=== PATIENT | male | born 1945 | race Caucasian/White ===

== ENCOUNTER 2017-01-11 15:48 | Inpatient (IN) | payer BC, MEDICARE ==
[~2017-01-11] VITALS: Ht 182.9 cm; Wt 90.3 kg
[2017-01-11 16:04] VITALS: BP 138/74
[2017-01-11] MEDS ORDERED: LORazepam 0.5mg tab ORAL ONE (16:30)
--- NOTE | 2017-01-11 16:30 | Emergency Room Report ---
History of Present Illness General Chief Complaint: Generalized Weakness Source: Patient, EMS Present Illness HPI 71 YOM BIBEMS for multiple complaints: C/o dizziness today, worse with change of position, moving head. Associated with nausea/vomiting, left sided abd pain. Denies chest pain, SOB, headache, change in or blurry vision. Denies urinary complaints. Also fell at home from dizziness but denies trauma or injury. Also concerned for "ruptured hemorrhoid" because "I had blood on the toilet paper." Allergies: Coded Allergies: Ferreira Meat (Verified Allergy, Unknown, 01/11/17) Uncoded Allergies: MINT (Allergy, Unknown, 01/11/17) SODIUM PENATOL (Allergy, Unknown, 01/11/17) Patient History Past Medical History: other - hemorrhoids, sciatica left side Past Surgical History: none Pertinent Family History: none Social History: Denies: alcohol use, drug use, smoking Immunizations: UTD Reviewed Nursing Documentation: PMH: Agreed, PSxH: Agreed Review of Systems All Other Systems: negative except mentioned in HPI Physical Exam Vital Signs Date Time Temp Pulse Resp B/P Pulse Ox O2 Delivery O2 Flow Rate FiO2 01/11/17 15:37 96.3 66 18 115/58 100 Room Air Sp02 EP Interpretation: reviewed, normal General Appearance: normal inspection, well appearing, no apparent distress, alert, GCS 15, non-toxic, other - well appearing elderly male lying in stretcher with eyes closed Head: normocephalic, atraumatic Eyes: bilateral eye EOMI, bilateral eye PERRL ENT: normal ENT inspection, hearing grossly normal, normal voice Neck: normal inspection, full range of motion, supple, no bony tend Respiratory: normal inspection, lungs clear, normal breath sounds, no respiratory distress, no retraction, no wheezing Cardiovascular #1: regular rate, rhythm, no edema Gastrointestinal: normal inspection, normal bowel sounds, soft, no guarding, no hernia, other - Left sided ttp Rectal: deferred Genitourinary: no CVA tenderness Musculoskeletal: normal inspection, back normal, normal range of motion, Lola' s Sign negative Neurologic: normal inspection, alert, oriented x3, responsive, microwave radio technician III-XII nml as tested, motor strength/tone normal, speech normal Psychiatric: normal inspection, judgement/insight normal, mood/affect normal Skin: normal inspection, normal color, no rash Lymphatic: normal inspection Medical Decision Making Medicare Attestation I Ramses Leigh MD hereby attest that the medical record entry for date of service, 10/04/16 accurately reflects signatures/notations that I made in my capacity as MD when I treated/diagnosed the above listed Medicare beneficiary. I attest that this information is true, accurate and complete to the best of my knowledge. I understand that any falsification, omission, or concealment of material fact may subject me to administrative, civil, or criminal liability. This patient warrants hospital admission for extreme of age and has a condition that cannot be treated as outpatient. Diagnostic Impression: Primary Impression: Episode of generalized weakness Additional Impressions: Dizziness Fall Qualified Codes: W19.XXXA - Unspecified fall, initial encounter Diverticulitis Qualified Codes: K57.33 - Diverticulitis of large intestine without perforation or abscess with bleeding ER Course Labs: Mild leuks. No other metabolic abd. Has refused to give urine so far CT head negative for cause of dizziness CTAP with acute diverticulitis, no abscess Levo/Flagyl given in ED Analgesia provided Endorsed to Dr dumont, med/surg admission at 657pm EKG Diagnostic Results Rate: other - atrial paced rhythm Rhythm: NSR ST Segments: no acute changes Rhythm Strip Diag. Results EP Interpretation: yes Rate: 60 Rhythm: NSR, no PVC's, no ectopy Chest X-Ray Diagnostic Results EP Interpretation: Yes Findings: no consolidation, no effusion, no pneumothorax, no acute cardiopulmonary disease Number of Views: 1 Last Vital Signs Date Time Temp Pulse Resp B/P Pulse Ox O2 Delivery O2 Flow Rate FiO2 01/11/17 16:04 97.6 60 18 138/74 100 Room Air Status: improved Disposition: ADMITTED INPATIENT Condition: Serious Referrals: NON PHYSICIAN (PCP) RAMSES LEIGH M.D. Jan 11, 2017 16:30
[2017-01-11 17:08] LABS: MEAN CORPUSCULAR HEMOGLOBIN 31.7 PG (27.0-31.0); MEAN CORPUSCULAR HGB CONC 35.3 G/DL (32.0-36.0); MEAN CORPUSCULAR VOLUME 90 FL (80-99); MEAN PLATELET VOLUME 7.3 FL (6.5-10.1); PLATELET COUNT 199 K/UL (150-450); RED BLOOD COUNT 5.51 M/UL (4.70-6.10); RED CELL DISTRIBUTION WIDTH 11.5 % (11.6-14.8); WHITE BLOOD COUNT 11.1 K/UL (4.8-10.8)
[2017-01-11 17:47] LABS: ALANINE AMINOTRANSFERASE 15 U/L (3-41); ALBUMIN/GLOBULIN RATIO 1.3 (1.0-2.7); ANION GAP 25 (5-15); ASPARTATE AMINO TRANSFERASE 23 U/L (5-40); CALCIUM 9.4 mg/dL (8.6-10.2); CARBON DIOXIDE 19 mEQ/L (20-30); CHLORIDE 90 mEQ/L (98-107); CKMB 3.6 ng/mL (< 6.7); HEMOLYSIS 9; POTASSIUM 3.7 mEQ/L (3.4-4.9); SODIUM 134 mEQ/L (135-145); TOTAL PROTEIN 7.4 g/dL (6.6-8.7); TROPONIN I < 0.30 ng/mL (<=0.30)
[2017-01-11 18:00] VITALS: BP 131/71
[2017-01-11] MEDS ORDERED: metroNIDAZOLE 500mg 100 ML IVPB ONE (19:00)
[2017-01-11 19:34] LABS: APPEARANCE,URINE CLEAR; KETONES,URINE 3+ (NEGATIVE); NITRITE,URINE NEGATIVE (NEGATIVE); PROTEIN,URINE 1+ (NEGATIVE); UROBILINOGEN,URINE NORMAL MG/DL (0.0-1.0)
[2017-01-11 19:35] LABS: LEUKOCYTE ESTERASE ,URINE NEGATIVE (NEGATIVE)
[2017-01-11 19:37] LABS: RBC,URINE 0-2 /HPF (0 - 0)
[2017-01-11 19:38] LABS: BACTERIA,URINE FEW /HPF; WBC,URINE 0-2 /HPF (0 - 0)
[2017-01-11] MEDS ORDERED: GABAPENTIN300 MG ORAL (19:53)
[2017-01-11] MEDS ORDERED: TIZANIDINE HCL2 M2 PO (19:53)
[2017-01-11] MEDS ORDERED: HYDROCODON-ACE1 EA15 ORAL (19:53)
[2017-01-11 20:00] VITALS: BP 124/65
[2017-01-11 20:36] VITALS: BP 148/74
[2017-01-12] VITALS: BP 144/79
[2017-01-12 04:00] VITALS: BP 139/76
[2017-01-12 08:45] VITALS: BP 145/92
--- NOTE | 2017-01-12 08:59 | Diagnostic Imaging Report ---
Clinical Indication: Abdominal pain Technique: No oral contrast utilized, per emergency room physician request IV administration nonionic contrast. Venous phase spiral acquisition obtained through the abdomen and pelvis. Multiplanar reconstructions were generated. Total dose length product 833 mGycm. CTDIvol(s) 16 mGy Comparison: None Findings: The appendix is not visualized. There are no findings to suggest acute appendicitis. There is wall thickening of the descending colon and to lesser extent the sigmoid colon. There is some pericolonic edema surrounding the descending colon. There is distal colonic diverticulosis. No small bowel distention. No free or loculated intraperitoneal air or fluid is evident. The liver, gallbladder, bile ducts, pancreas, spleen, adrenals are unremarkable. There are bilateral renal cysts. No renal or ureteral calculi, hydronephrosis, or hydroureter. The seminal vesicles and bladder unremarkable. The prostate is slightly prominent. The included lung bases demonstrate some dependent atelectasis or scarring. Pacemaker wires are seen in the right heart. There are degenerative changes of the lumbosacral spine. There are degenerative changes of both hips. Impression: Diverticulosis Wall thickening of the descending and, to a lesser extent, the sigmoid colon. Is made represent acute diverticulitis. However, the extent of the colonic abnormality raises possibility that could represent colitis of the descending colon Incidental findings of bilateral renal cysts, dependent pulmonary atelectasis, pacemaker, degenerative changes of the hips, degenerative disc disease This agrees with the preliminary interpretation provided overnight by Dr. Guadarrama The CT scanner at [facility] is accredited by the [employer] and the scans are performed using protocols designed to limit radiation exposure to as low as reasonably achievable to attain images of sufficient resolution adequate for diagnostic evaluation.
--- NOTE | 2017-01-12 09:28 | Diagnostic Imaging Report ---
Indication: Dizziness Technique: spiral acquisitions obtained through the brain. Angled axial and coronal 5 x 5 mm slices were reconstructed. No IV contrast utilized. Radiation dose was minimized using automated exposure control Total dose length product 1428 mGycm. CTDIvol(s) 70 mGy Comparison: none FINDINGS: No acute hemorrhage or edema. No mass effect or midline shift. There is age-related enlargement of the ventricles and extra axial CSF spaces. There is periventricular deep white matter ischemic change. Normal crenshaw-white differentiation. Visualized orbits are unremarkable. Visualized sinuses are unremarkable. Intact calvarium. IMPRESSION: Chronic and age-related changes. Negative for acute intracranial bleed or mass effect This agrees with the preliminary interpretation provided overnight by Dr. Guadarrama The CT scanner at [facility] is accredited by the [employer] and the scans are performed using protocols designed to limit radiation exposure to as low as reasonably achievable to attain images of sufficient resolution adequate for diagnostic evaluation
[2017-01-12] MEDS ORDERED: LORazepam 1mg tab ORAL PRN (10:30)
[2017-01-12] MEDS: Norco 5mg/325mg tab ORAL PRN (10:33)
--- NOTE | 2017-01-12 11:07 | Diagnostic Imaging Report ---
Indication: Cough Technique: One view of the chest Comparison: none Findings: There is a left chest bifocal pacemaker. Lungs and pleural spaces are clear. Aorta is tortuous. Impression: No acute process
[2017-01-12] MEDS: Morphine Sulfate 2mg/ml Inj IVP PRN ×2 (11:42→17:43)
[2017-01-12 12:53] VITALS: BP 140/70
--- NOTE | 2017-01-12 13:49 | Infectious Diseases Prog Note ---
Assessment/Plan Problems: (1) Diverticulitis Assessment & Plan: will check stool culture and C diff toxine, and start levaquin with flagyl empiric therapy for now, recommend GI consult (2) Colitis Assessment & Plan: on levaquin and flagyl, send stool culture and C diff (3) Dizziness Assessment & Plan: rule out cardiac VS neurological etiology, consult neurology and cardiology Subjective Allergies: Coded Allergies: CODEINE (Verified Allergy, Unknown, 01/11/17) Ferreira Meat (Verified Allergy, Unknown, 01/11/17) Uncoded Allergies: MINT (Allergy, Unknown, 01/11/17) SODIUM PENATOL (Allergy, Unknown, 01/11/17) Objective Vital Signs Last 24 Hour Vital Signs Date Time Temp Pulse Resp B/P Pulse Ox O2 Delivery O2 Flow Rate FiO2 01/12/17 12:53 97.0 73 21 140/70 98 Room Air 01/12/17 11:32 97.2 01/12/17 11:32 97.2 01/12/17 08:45 97.2 71 20 145/92 94 01/12/17 06:02 97.9 01/12/17 04:00 97.9 66 18 139/76 95 Room Air 01/12/17 00:00 98.1 67 18 144/79 95 Room Air 01/11/17 20:36 96.4 65 20 148/74 97 Room Air 01/11/17 20:13 63 16 124/65 99 Room Air 01/11/17 20:00 97.9 63 16 124/65 99 Room Air 01/11/17 18:00 61 18 131/71 99 Room Air 01/11/17 16:04 97.6 60 18 138/74 100 Room Air 01/11/17 15:37 96.3 66 18 115/58 100 Room Air Height (Feet): 6 Weight (Pounds): 199 Laboratory Tests Test 01/11/17 16:00 01/11/17 18:30 White Blood Count 11.1 K/UL (4.8-10.8) H Red Blood Count 5.51 M/UL (4.70-6.10) Hemoglobin 17.4 G/DL (14.2-18.0) Hematocrit 49.3 % (42.0-52.0) Mean Corpuscular Volume 90 FL (80-99) Mean Corpuscular Hemoglobin 31.7 PG (27.0-31.0) H Mean Corpuscular Hemoglobin Concent 35.3 G/DL (32.0-36.0) Red Cell Distribution Width 11.5 % (11.6-14.8) L Platelet Count 199 K/UL (150-450) Mean Platelet Volume 7.3 FL (6.5-10.1) Neutrophils (%) (Auto) % (45.0-75.0) Lymphocytes (%) (Auto) % (20.0-45.0) Monocytes (%) (Auto) % (1.0-10.0) Eosinophils (%) (Auto) % (0.0-3.0) Basophils (%) (Auto) % (0.0-2.0) Sodium Level 134 mEQ/L (135-145) L Potassium Level 3.7 mEQ/L (3.4-4.9) Chloride Level 90 mEQ/L (98-107) L Carbon Dioxide Level 19 mEQ/L (20-30) L Anion Gap 25 (5-15) H Blood Urea Nitrogen 29 mg/dL (7-23) H Creatinine 1.0 mg/dL (0.7-1.2) Estimat Glomerular Filtration Rate mL/min (>60) Glucose Level 172 mg/dL (74-106) H Calcium Level 9.4 mg/dL (8.6-10.2) Total Bilirubin 0.6 mg/dL (0.0-1.2) Aspartate Amino Transf (AST/SGOT) 23 U/L (5-40) Alanine Aminotransferase (ALT/SGPT) 15 U/L (3-41) Alkaline Phosphatase 90 U/L (40-129) Total Creatine Kinase 130 U/L (38-174) Creatine Kinase MB 3.6 ng/mL (< 6.7) Creatine Kinase MB Relative Index 2.7 Troponin I < 0.30 ng/mL (<=0.30) Total Protein 7.4 g/dL (6.6-8.7) Albumin 4.2 g/dL (3.5-5.2) Globulin 3.2 g/dL Albumin/Globulin Ratio 1.3 (1.0-2.7) Urine Color Yellow Urine Appearance Clear Urine pH 5.0 (4.5-8.0) Urine Specific [place] 1.005 (1.005-1.035) Urine Protein 1+ (NEGATIVE) H Urine Glucose (UA) Negative (NEGATIVE) Urine Ketones 3+ (NEGATIVE) H Urine Occult Blood 1+ (NEGATIVE) H Urine Nitrite Negative (NEGATIVE) Urine Bilirubin Negative (NEGATIVE) Urine Urobilinogen Normal MG/DL (0.0-1.0) Urine Leukocyte Esterase Negative (NEGATIVE) Urine RBC 0-2 /HPF (0 - 0) H Urine WBC 0-2 /HPF (0 - 0) Urine Squamous Epithelial Cells None /LPF (NONE/OCC) Urine Bacteria Few /HPF (NONE) Current Medications Medications (Trade) Dose Ordered Sig/Sammy Route PRN Reason Start Time Stop Time Status Last Admin Dose Admin Acetaminophen (Tylenol) 650 mg Q4H PRN ORAL Mild Pain/Temp > 100.5 01/11/17 22:00 02/10/17 21:59 01/12/17 05:03 Acetaminophen/ Hydrocodone Bitart ([place] 5/325) 1 tab Q4H PRN ORAL Moderate Pain (Pain Scale 4-6) 01/12/17 10:00 01/19/17 09:59 01/12/17 10:33 Levofloxacin 100 ml @ 100 mls/hr Q24H IVPB 01/12/17 19:00 01/19/17 18:59 Lorazepam (Ativan) 1 mg Q6H PRN ORAL For Anxiety 01/12/17 10:30 01/19/17 10:29 Metronidazole (Flagyl) 100 ml @ 100 mls/hr Q8HR IVPB 01/12/17 14:00 01/19/17 13:59 Morphine Sulfate 2 mg 2 mg Q4H PRN IVP Severe Pain (Pain Scale 7-10) 01/12/17 11:30 01/19/17 11:29 01/12/17 11:42 Ondansetron HCl 4 mg 4 mg Q6H PRN IVP Nausea & Vomiting 01/11/17 21:15 02/10/17 21:14 01/12/17 11:48 Sodium Chloride (0.45% NS 1000ml) 1,000 ml @ 75 mls/hr [id number] IV 01/11/17 22:00 02/10/17 21:59 01/11/17 21:56 Karri Trujillo M.D. Jan 12, 2017 13:49
[2017-01-12] MEDS: metroNIDAZOLE 500mg 100 ML IVPB SCH ×2 (14:50→21:29)
[2017-01-12 15:56] VITALS: BP 142/88
[2017-01-12 20:00] VITALS: BP 140/80
--- NOTE | 2017-01-12 20:33 | General Progress Note ---
Assessment/Plan Assessment/Plan GI CONSULT Dictated Thank you Torsten Subjective Allergies: Coded Allergies: CODEINE (Verified Allergy, Unknown, 01/11/17) Ferreira Meat (Verified Allergy, Unknown, 01/11/17) Uncoded Allergies: MINT (Allergy, Unknown, 01/11/17) SODIUM PENATOL (Allergy, Unknown, 01/11/17) Objective Last 24 Hour Vital Signs Date Time Temp Pulse Resp B/P Pulse Ox O2 Delivery O2 Flow Rate FiO2 01/12/17 15:56 97.5 72 18 142/88 94 Room Air 01/12/17 12:53 97.0 73 21 140/70 98 Room Air 01/12/17 11:32 97.2 01/12/17 11:32 97.2 01/12/17 08:45 97.2 71 20 145/92 94 01/12/17 06:02 97.9 01/12/17 04:00 97.9 66 18 139/76 95 Room Air 01/12/17 00:00 98.1 67 18 144/79 95 Room Air 01/11/17 20:36 96.4 65 20 148/74 97 Room Air Intake and Output 01/11/17 01/12/17 19:00 07:00 Intake Total 625 ml Balance 625 ml Intake IV Total 625 ml # Voids 3 Height (Feet): 6 Weight (Pounds): 199 UTE SHAH Jan 12, 2017 20:33
--- NOTE | 2017-01-12 21:38 | History and Physical Report ---
DATE OF ADMISSION: 01/11/2017 REASON FOR ADMISSION: Weakness and abdominal pain. HISTORY OF PRESENT ILLNESS: The patient is also being treated by acupuncture for sciatica symptoms. The patient was having abdominal left pain radiating to the left knee. The main reason for admission was syncopal episode. found him in the bathroom, was diaphoretic, slumped over, and is admitted for syncope. The patient complained of shortness of breath before this happened, but denied chest pain. Denies palpitations. The patient again is being treated by acupuncture for sciatica while all this was going on. The patient denies orthopnea. Otherwise, denies history of heart failure or heart disease. PAST MEDICAL HISTORY: Significant for anxiety, sciatica/neuropathy, arrhythmia, as well as cataract. PAST SURGICAL HISTORY: Cataract surgery, hemorrhoid surgery, appendectomy, right leg surgery, and pacemaker. MEDICATIONS: Tizanidine, gabapentin, and Vicodin. ALLERGIES: Codeine, sodium, and Pantozol. SOCIAL HISTORY: Denies history of smoking. Denies history of drug and alcohol abuse. FAMILY HISTORY: Noncontributory. REVIEW OF SYSTEMS: HEENT: Denies headache. Respiratory: Does have exertion of shortness of breath and had shortness of breath before passing out. Cardiovascular: Denies chest pain. Denies orthopnea. Gastrointestinal: Reported abdominal pain. No diarrhea. No vomiting for the past couple of days. Extremities: The patient complains of a left hip pain radiating to the left knee. Central Nervous System: He did have syncopal episode. Denies change in vision or speech pattern. He is able to ambulate. PHYSICAL EXAMINATION: VITAL SIGNS: Temperature 96.4 degrees, pulse is 65, and blood pressure 148/74. HEENT: PERRLA. NECK: Supple. No lymphadenopathy. CHEST: Clear to auscultation. GASTROINTESTINAL: Does have left lower quadrant tenderness. No significant rebound. No organomegaly. Abdomen is soft. Positive bowel sounds. EXTREMITIES: No edema. NEUROLOGIC: Reflexes are equal on both sides. Able to move all four extremities. Cranial nerves II through XII are intact. LABORATORY DATA: Laboratory torres, WBC of 11, hemoglobin 24, and platelets of 199,000. Sodium 134, potassium 3.7, BUN 29, creatinine 1, and glucose 172. Normal LFTs. ASSESSMENT: 1. Syncopal episodes. 2. Diaphoresis. 3. Anxiety. 4. Hip pain. PLAN: I have asked Dr. Zamora, Dr. Song, Dr. Trujillo, Dr. Sarmiento, and Dr. Marcial to see the patient for the above-mentioned diagnoses and treatment and to rule out any source of infection. Lucho Goldman M.D. DR: ANEUDY JOB#: [id number] CC:
[2017-01-12] MEDS: Zolpidem 5mg tab ORAL PRN (21:57)
--- NOTE | 2017-01-12 23:08 | Consultation ---
DATE OF CONSULTATION: INFECTIOUS DISEASE CONSULTATION REQUESTING PHYSICIAN: Lucho Goldman M.D. REASON FOR CONSULTATION: Diverticulitis, recommendation for antibiotics therapy. HISTORY OF PRESENT ILLNESS: Mr. Miguel Angel Hernandez is a 71-year-old male with past medical history of hemorrhoids and sciatica, brought into [facility] for feeling dizzy with change of position, mainly when he moves his head, nausea and vomiting with left side abdominal pain. He had diarrhea. Denied any blood in the stool, fell at home from dizziness, but no head injury. The patient had some blood on the toilet paper most likely due to rupture of hemorrhoids, but he was concerned about it. In the emergency room, his temperature was 96.3, saturating 100% on room air. The patient was admitted to the hospital for evaluation of his dizziness and recurrent falls and possible diverticulitis of the descending colon and I was consulted by the primary provider for antibiotic recommendation. PAST MEDICAL HISTORY: Significant for hemorrhoids and sciatica on the left side. PAST SURGICAL HISTORY: Negative. FAMILY HISTORY: Noncontributory. ALLERGIES: He is allergic to goddard meat, mint. MEDICATIONS: The patient received levofloxacin and Flagyl in the emergency room. FOR The list of his medications please refer to MAR. REVIEW OF SYSTEMS: A 12-point system reviewed were all negative apart from the one I mentioned above in my History and Physical. PHYSICAL EXAMINATION: VITAL SIGN: Temperature 97 degrees, pulse 73, respirations 21, blood pressure 140/70, and saturation 98% on room air. GENERAL: An elderly male, lying in bed, alert, not in distress. HEENT: Normocephalic and atraumatic. Pupils are reactive to light. Moist oral mucosa. No exudate. NECK: Supple. No lymphadenopathy. CARDIOVASCULAR: Regular rate and rhythm. No murmur. LUNGS: Clear bilaterally. No breathing difficulty. No wheezing. ABDOMEN: Soft, nontender, and nondistended. Positive bowel sounds. Tenderness on the left side of his abdomen. No ascites. No hepatomegaly. EXTREMITIES: No edema. No cyanosis. SKIN: No rash or hives. LABORATORY AND DIAGNOSTIC DATA: His white count was 11.1, platelet count 199,000. BUN of 29, creatinine of 1. Urinalysis was negative for leukocyte esterase, nitrite, and WBC. Imaging, abdominal CT scan with contrast showed diverticulosis, wall thickening of the descending and the sigmoid colon, who present acute diverticulitis with questionable colitis in the descending colon. Incidental findings of bilateral renal cysts, dependent pulmonary atelectasis, and pacemaker. Head CT scan showed chronic and age-related changes. Negative for acute intracranial bleeding or mass effect. Chest x-ray showed no acute process. ASSESSMENT AND PLAN: 1. Diverticulitis. We will send stool culture and check for Clostridium difficile and start Levaquin with Flagyl empiric treatment. Recommend gastrointestinal consultation. 2. Colitis, on Levaquin and Flagyl already. We will send stool for culture and Clostridium difficile. Monitor symptoms. 3. Dizziness, status post fall. Rule out cardiac versus neurological etiology. Consult Neurology and Cardiology. Continue monitor and storage bin tender. Karri Trujillo M.D. DR: Eriberto JOB#: [id number] CC: ELY
[2017-01-13] VITALS: BP 139/78
[2017-01-13 04:00] VITALS: BP 144/59
[2017-01-13] MEDS: Norco 5mg/325mg tab ORAL PRN (04:46)
[2017-01-13] MEDS: metroNIDAZOLE 500mg 100 ML IVPB SCH ×3 (06:35→20:50)
--- NOTE | 2017-01-13 07:49 | Consultation ---
DATE OF CONSULTATION: 01/12/2017 CHIEF COMPLAINT: Left hip pain. HISTORY OF PRESENT ILLNESS: The patient is a 71-year-old gentleman with a diagnosis of diverticulitis. The patient reports that he is having some left lateral hip pain and he feels like it is deep. He reports no other pain. It does occasionally radiate down his left thigh. There is no previous history of hip or back pathology, but does report some occasional back pain, He had workup of his lumbar spine. PAST MEDICAL HISTORY: Reviewed from the intake chart. PAST SURGICAL HISTORY: Reviewed from the intake chart. MEDICATIONS: Reviewed from the intake chart. PHYSICAL EXAMINATION: Left hip examination shows good range of motion from 0 to 130, about 25 degrees internal rotation and external rotation 25 degrees. There is some pain on the peritrochanteric area. No pain along the piriformis area. Tenderness over lumbar spine muscles. Sensation is grossly intact to light touch. Reflexes are +2. Posterior calf is soft. ASSESSMENT: 1. Diverticulitis, possible referred left hip pain. 2. Peritrochanteric bursitis with possible lumbar radiculopathy. DISCUSSION: At this point, he is having localized pain on the lateral aspect of the left hip. This may be peritrochanteric bursitis or potentially referred from diverticulitis. At this point, what I recommend is medical treatment of the diverticulitis. We are going to continue to monitor to see if this pain improves. If not, then he may benefit from a cortisone injection in the peritrochanteric area, which can be done as an outpatient. Therefore, I would like to see him back in two to three weeks as outpatient. At that point, if he is more medically stable, particularly if his diverticulitis is under control, then a cortisone injection would not be unreasonable. I discussed with him that if he does not have significant relief with the cortisone injection, then workup of the lumbar spine for possible radiculopathy would be reasonable. Greyson Ray M.D. DR: KRYSTIAN JOB#: [id number] CC: Loraine Zavala
[2017-01-13 08:00] VITALS: BP 154/97
--- NOTE | 2017-01-13 08:09 | Consultation ---
DATE OF CONSULTATION: 01/12/2017 GASTROENTEROLOGY CONSULTATION CHIEF COMPLAINT: I was asked to see this patient by Dr. Lucho Goldman today for evaluation of abdominal issues. HISTORY OF PRESENT ILLNESS: The patient is a 71-year-old white man who has recently noted left-sided flank pain going down to his hips. He was seen by his primary care physician and a presumptive diagnosis of sciatica was made. He was given steroid, Medrol Dosepak as well as some antispasmodics and pain medications. However, the pain has persisted and he developed constipation. He was given a stool softener and subsequently he had diarrhea with subsequent gas. He noted hematochezia for a few days, upon which he came to the hospital for admission. The patient has not had any more bleeding and it has stopped for the past two or three days. He has been kept NPO. He has no nausea or vomiting. He had a colonoscopy perhaps five or six years ago. He had a CT scan at this hospital, which shows diverticulosis of the thickened left colon. Differential diagnosis from a radiographic standpoint is diverticulitis versus colitis. He has been started on antibiotics for intra-abdominal infection. He had mild elevation in his white count. PAST MEDICAL HISTORY: Gastroesophageal reflux disease and status post pacemaker placement. Son has ulcerative colitis. PAST SURGICAL HISTORY: Status post leg surgery, status post appendix surgery, and cataract surgery. SOCIAL HISTORY: The patient is . He has a son, who is at bedside, who has ulcerative colitis. FAMILY HISTORY: Noncontributory. REVIEW OF SYSTEMS: Otherwise negative. PHYSICAL EXAMINATION: GENERAL: The patient is a pleasant white man, seen in his room. HEENT: Normocephalic and atraumatic. Sclerae anicteric. Oropharynx clear. NECK: Supple. CHEST: Clear to auscultation. CARDIOVASCULAR: Revealed a regular rate. ABDOMEN: Soft with good bowel sounds. There is left lower quadrant tenderness to palpation. EXTREMITIES: Revealed no edema. NEUROLOGIC: Nonfocal. LABORATORY DATA: Noted. ASSESSMENT: This patient has developed left lower quadrant abdominal pain with CT scan showing either diverticulitis or colitis. He developed some rectal bleeding, which has resolved. This is typically from colitis, but from diverticula. The diagnosis of diverticulitis precludes doing any colonoscopic examination since it carries a risk of perforation. On the other hand, colitis and diverticular bleeding managed with colonoscopic intervention. Given the patient has stopped bleeding and he is feeling better, cautioned not to plan colonoscopy at this time. The patient should be given antibiotics for presumptive diagnosis of diverticulitis. perhaps one month to see whether he can undergo colonoscopic evaluation to rule out any colitis. Should his bleeding persist, he will return, then the decision can be changed. RECOMMENDATIONS: 1. Advance diet to clear liquids. 2. Continue antibiotics. 3. Check stool for C. difficile. 4. Colonoscopy as an outpatient. Thank you for asking me to participate in the care of this patient. Ángela Sarmiento M.D. DR: SISI JOB#: [id number] CC:
--- NOTE | 2017-01-13 09:09 | Consultation ---
History of Present Illness General Date patient seen: Jan 13, 2017 Chief Complaint: Generalized Weakness Present Illness Allergies: Coded Allergies: CODEINE (Verified Allergy, Unknown, 01/11/17) Ferreira Meat (Verified Allergy, Unknown, 01/11/17) Uncoded Allergies: MINT (Allergy, Unknown, 01/11/17) SODIUM PENATOL (Allergy, Unknown, 01/11/17) Medication History Scheduled PRN Hydrocodone/Acetaminophen 5-325* (Hydrocodone/Acetaminophen 5-325*), 1 TAB ORAL Q6H PRN for For Pain, (Reported) Miscellaneous Medications Gabapentin* (Gabapentin*), 300 MG ORAL, (Reported) Tizanidine Hcl (Tizanidine Hcl), 2 MG PO, (Reported) Patient History Healthcare decision maker pt alert and oriented Resuscitation status Full Code Advanced Directive on File No Physical Exam Last 24 Hour Vital Signs Date Time Temp Pulse Resp B/P Pulse Ox O2 Delivery O2 Flow Rate FiO2 01/13/17 08:00 98.1 81 21 154/97 95 Room Air 01/13/17 05:45 95.9 01/13/17 04:00 95.9 74 21 144/59 94 Room Air 01/13/17 00:00 97.6 72 18 139/78 95 Room Air 01/12/17 20:00 97.2 74 19 140/80 94 Room Air 01/12/17 15:56 97.5 72 18 142/88 94 Room Air 01/12/17 12:53 97.0 73 21 140/70 98 Room Air 01/12/17 11:32 97.2 Intake and Output 01/12/17 01/13/17 19:00 07:00 Intake Total 600 ml 1415 ml Balance 600 ml 1415 ml Intake Oral 540 ml IV Total 600 ml 875 ml # Voids 2 5 Height (Feet): 6 Weight (Pounds): 199 Medications Current Medications Medications (Trade) Dose Ordered Sig/Sammy Route PRN Reason Start Time Stop Time Status Last Admin Dose Admin Acetaminophen (Tylenol) 650 mg Q4H PRN ORAL Mild Pain/Temp > 100.5 01/11/17 22:00 02/10/17 21:59 01/12/17 05:03 Acetaminophen/ Hydrocodone Bitart ([place] 5/325) 1 tab Q4H PRN ORAL Moderate Pain (Pain Scale 4-6) 01/12/17 10:00 01/19/17 09:59 01/13/17 04:46 Levofloxacin 100 ml @ 100 mls/hr Q24H IVPB 01/12/17 19:00 01/19/17 18:59 01/12/17 19:04 Lorazepam (Ativan) 1 mg Q6H PRN ORAL For Anxiety 01/12/17 10:30 01/19/17 10:29 Metronidazole (Flagyl) 100 ml @ 100 mls/hr Q8HR IVPB 01/12/17 14:00 01/19/17 13:59 01/13/17 06:35 Morphine Sulfate 2 mg 2 mg Q4H PRN IVP Severe Pain (Pain Scale 7-10) 01/12/17 11:30 01/19/17 11:29 01/12/17 17:43 Ondansetron HCl 4 mg 4 mg Q6H PRN IVP Nausea & Vomiting 01/11/17 21:15 02/10/17 21:14 01/12/17 17:55 Sodium Chloride (0.45% NS 1000ml) 1,000 ml @ 75 mls/hr [id number] IV 01/11/17 22:00 02/10/17 21:59 01/12/17 17:44 Zolpidem Tartrate (Ambien) 5 mg HSPRN PRN ORAL Insomnia 01/12/17 20:45 02/11/17 20:44 01/12/17 21:57 Assessment/Plan Assessment/Plan (1) Lumbar Radiculopathy (2) Lumbar DDD (3) Abdominal pain (4) Diverticulitis Seen Dictated ROSALIO NIXON Jan 13, 2017 09:09
[2017-01-13 09:23] LABS: BASOPHILS % (AUTO) 0.8 % (0.0-2.0); EOSINOPHILS % (AUTO) 0.3 % (0.0-3.0); LYMPHOCYTES % (AUTO) 14.5 % (20.0-45.0); MEAN CORPUSCULAR HEMOGLOBIN 30.4 PG (27.0-31.0); MEAN CORPUSCULAR HGB CONC 33.1 G/DL (32.0-36.0); MEAN CORPUSCULAR VOLUME 92 FL (80-99); MEAN PLATELET VOLUME 8.4 FL (6.5-10.1); MONOCYTES % (AUTO) 8.1 % (1.0-10.0); NEUTROPHILS % (AUTO) 76.4 % (45.0-75.0); PLATELET COUNT 176 K/UL (150-450); RED BLOOD COUNT 5.13 M/UL (4.70-6.10); WHITE BLOOD COUNT 8.2 K/UL (4.8-10.8)
[2017-01-13 09:33] LABS: ALANINE AMINOTRANSFERASE 11 U/L (3-41); ALBUMIN/GLOBULIN RATIO 1.3 (1.0-2.7); ANION GAP 19 (5-15); ASPARTATE AMINO TRANSFERASE 18 U/L (5-40); CALCIUM 8.7 mg/dL (8.6-10.2); CARBON DIOXIDE 22 mEQ/L (20-30); CHLORIDE 93 mEQ/L (98-107); HEMOLYSIS 16; POTASSIUM 3.9 mEQ/L (3.4-4.9); SODIUM 134 mEQ/L (135-145); TOTAL PROTEIN 6.2 g/dL (6.6-8.7)
[2017-01-13] MEDS: Tums 500mg ORAL PRN ×2 (11:58→17:26)
[2017-01-13 12:00] VITALS: BP 131/80
--- NOTE | 2017-01-13 12:28 | General Progress Note ---
Assessment/Plan Problem List: (1) Dizziness ICD Codes: R42 - Dizziness and giddiness SNOMED: 365091633, 546019589 (2) Fall ICD Codes: W19.XXXA - Unspecified fall, initial encounter SNOMED: 1041323, 294054257 Qualifiers: Qualified Codes: W19.XXXA - Unspecified fall, initial encounter (3) Episode of generalized weakness ICD Codes: R53.1 - Weakness SNOMED: 43179358 (4) Colitis ICD Codes: K52.9 - Noninfective gastroenteritis and colitis, unspecified SNOMED: 832464803 (5) Diverticulitis ICD Codes: K57.92 - Diverticulitis of intestine, part unspecified, without perforation or abscess without bleeding SNOMED: 876718707 Qualifiers: Qualified Codes: K57.33 - Diverticulitis of large intestine without perforation or abscess with bleeding Status: progressing Assessment/Plan abdominal pain weak diverticulitis colitis abx per id r/o c diff Subjective ROS Limited/Unobtainable: Yes Allergies: Coded Allergies: CODEINE (Verified Allergy, Unknown, 01/11/17) Ferreira Meat (Verified Allergy, Unknown, 01/11/17) Uncoded Allergies: MINT (Allergy, Unknown, 01/11/17) SODIUM PENATOL (Allergy, Unknown, 01/11/17) Objective Last 24 Hour Vital Signs Date Time Temp Pulse Resp B/P Pulse Ox O2 Delivery O2 Flow Rate FiO2 01/13/17 08:00 98.1 81 21 154/97 95 Nasal Cannula 2.0 01/13/17 05:45 95.9 01/13/17 04:00 95.9 74 21 144/59 94 Room Air 01/13/17 00:00 97.6 72 18 139/78 95 Room Air 01/12/17 20:00 97.2 74 19 140/80 94 Room Air 01/12/17 15:56 97.5 72 18 142/88 94 Room Air 01/12/17 12:53 97.0 73 21 140/70 98 Room Air Intake and Output 01/12/17 01/13/17 19:00 07:00 Intake Total 600 ml 1415 ml Balance 600 ml 1415 ml Intake Oral 540 ml IV Total 600 ml 875 ml # Voids 2 5 Laboratory Tests 01/13/17 05:30: White Blood Count 8.2, Red Blood Count 5.13, Hemoglobin 15.6, Hematocrit 47.2, Mean Corpuscular Volume 92, Mean Corpuscular Hemoglobin 30.4, Mean Corpuscular Hemoglobin Concent 33.1, Red Cell Distribution Width 12.0, Platelet Count 176, Mean Platelet Volume 8.4, Neutrophils (%) (Auto) 76.4H, Lymphocytes (%) (Auto) 14.5L, Monocytes (%) (Auto) 8.1, Eosinophils (%) (Auto) 0.3, Basophils (%) (Auto ) 0.8, Sodium Level 134L, Potassium Level 3.9, Chloride Level 93L, Carbon Dioxide Level 22, Anion Gap 19H, Blood Urea Nitrogen 24H, Creatinine 1.0, Estimat Glomerular Filtration Rate , Glucose Level 72L, Calcium Level 8.7, Total Bilirubin 0.4, Aspartate Amino Transf (AST/SGOT) 18, Alanine Aminotransferase (ALT/SGPT) 11, Alkaline Phosphatase 71, Total Protein 6.2L, Albumin 3.6, Globulin 2.6, Albumin/Globulin Ratio 1.3 Height (Feet): 6 Weight (Pounds): 199 General Appearance: mild distress Neck: supple Cardiovascular: normal rate Respiratory/Chest: lungs clear Lucho Goldman MD Jan 13, 2017 12:28
[2017-01-13] MEDS: Morphine Sulfate 2mg/ml Inj IVP PRN ×2 (12:41→20:38)
--- NOTE | 2017-01-13 14:03 | Cardiology Report ---
APPROVED REPORT EKG Measurement Heart [id number] [id number] Atrial pacing Voltage criteria for left ventricular hypertrophy Abnormal ECG
--- NOTE | 2017-01-13 14:27 | Diagnostic Imaging Report ---
Indications: Back pain Technique: Spiral acquisitions obtained through the lumbar spine. Multiplanar reconstructions were generated. No IV contrast utilized. Total dose length product 458 mGycm. CTDIvol(s) 15 mGy Comparison: None Findings: There is very slight anterior offset of L4 on L5 very slight posterior offset of L5 on S1, presumably related to degenerative change. Bony alignment is otherwise normal. Vertebral body heights are preserved. No acute fractures are evident. At T12-L1, L1-L2, no significant disc bulge or protrusion, spinal stenosis, disc or facet degeneration, or neural foraminal stenosis demonstrated. At L2-3, there is herniation of the disc posterior to the posterior longitudinal ligament, with central and to the left of midline, which results in narrowing of the spinal canal and obliteration of the left lateral recess. The herniated disc extends posterior to the L3 vertebral body almost to the level of the L3 inferior endplate. The protruded disc measures approximately 16 mm transverse, 6 mm AP, an 18 mm craniocaudad. The disc may actually impinge somewhat on the left L3-4 neural foramen as well. Spinal stenosis at this level is also exacerbated by ligamentum flavum hypertrophy. There is mild compromise of the bilateral neural foramina. The disc space is preserved. There is minimal bilateral facet degeneration, worse on the right than on the left. At L3-4, there is moderate spinal stenosis, due to a combination of mild circumferential annular bulge, severe facet and ligamentum flavum hypertrophy, and short pedicles. The neural foramina are largely preserved, except that is mentioned earlier there may be slight compromise of the left neural foramen by the intervening L2-3 disc. There is severe bilateral facet degeneration. The disc space is preserved At L4-5, there is circumferential annular bulge as well as central broad-based posterior disc protrusion and osteophyte complex. This, in combination with facet hypertrophy, short pedicles, and ligamentum flavum hypertrophy probably results in at least moderate narrowing of the spinal canal. There is considerable narrowing in the transverse dimension as well. The neural foramina are only minimally compromised by the protruding disc. The disc space is preserved. There is severe bilateral facet degeneration. At L5-S1, there is moderate to severe degenerative disc narrowing. There is mild posterior osteophyte complex, but this does not appear to significantly narrow the spinal canal. The neural foramina are preserved. The included extraspinal soft tissues are unremarkable. Impression: Inferior central and paracentral disc herniation at L2-3, as described, with obliteration of the lateral recess, spinal stenosis, and possibly even encroachment into the L3-4 neural foramen. Multi-level degenerative changes and spinal stenosis at other levels, as detailed above No acute bony trauma The CT scanner at [facility] is accredited by the [employer] and the scans are performed using protocols designed to limit radiation exposure to as low as reasonably achievable to attain images of sufficient resolution adequate for diagnostic evaluation.
[2017-01-13] MEDS ORDERED: Tubing IV Secondary IV ONE (14:57)
[2017-01-13] MEDS ORDERED: 1/2 NS 1000ml IV ONE (14:57)
[2017-01-13 16:08] VITALS: BP 145/83
--- NOTE | 2017-01-13 16:41 | Infectious Diseases Prog Note ---
Assessment/Plan Problems: (1) Diverticulitis Assessment & Plan: continue levaquin and flagyl , await stool culture and C diff toxine, follow up with GI (2) Colitis Assessment & Plan: on levaquin and flagyl, send stool culture and C diff (3) Dizziness Assessment & Plan: rule out cardiac VS neurological etiology, consult neurology and cardiology Subjective Constitutional: Denies: anorexia, chills, drenching sweats, fatigue, fever, no symptoms, other HEENT: Denies: congestion, coryza, dysphagia, hearing change, no symptoms, other, visual change Respiratory: Denies: dry cough, no symptoms, other, productive cough, shortness of breath Breasts: Denies: discharge, no symptoms, other, swelling, tenderness Cardiovascular: Denies: chest pain, dyspnea on exertion, no symptoms, other, palpitations Gastrointestinal/Abdominal: Denies: bloating, blood in stool, constipation, diarrhea, nausea, no symptoms, other, vomiting Genitourinary: Denies: dysuria, frequency, hematuria, no symptoms, nocturia, other Neurologic: Denies: confusion, headache, no symptoms, numbness, other, weakness Psychiatric: Denies: anxiety, depression, no symptoms, other Skin: Denies: no symptoms, other, rash, ulcer Endocrine: Denies: feels cold, feels warm, no symptoms, other Allergies: Coded Allergies: CODEINE (Verified Allergy, Unknown, 01/11/17) Ferreira Meat (Verified Allergy, Unknown, 01/11/17) Uncoded Allergies: MINT (Allergy, Unknown, 01/11/17) SODIUM PENATOL (Allergy, Unknown, 01/11/17) Objective Vital Signs Last 24 Hour Vital Signs Date Time Temp Pulse Resp B/P Pulse Ox O2 Delivery O2 Flow Rate FiO2 01/13/17 16:08 97.5 61 18 145/83 97 Room Air 01/13/17 13:11 98.1 01/13/17 12:00 97.7 71 20 131/80 94 Room Air 01/13/17 08:00 98.1 81 21 154/97 95 Nasal Cannula 2.0 01/13/17 05:45 95.9 01/13/17 04:00 95.9 74 21 144/59 94 Room Air 01/13/17 00:00 97.6 72 18 139/78 95 Room Air 01/12/17 20:00 97.2 74 19 140/80 94 Room Air Height (Feet): 6 Weight (Pounds): 199 General Appearance: WD/WN, no acute distress HEENT: normocephalic, atraumatic, mucous membranes moist Respiratory/Chest: chest wall non-tender, lungs clear, normal breath sounds, no respiratory distress, no accessory muscle use Cardiovascular: normal peripheral pulses, normal rate, regular rhythm, regularly irregular Abdomen: normal bowel sounds, soft, non tender, no organomegaly, non distended , no mass Extremities: no cyanosis, no clubbing Skin: no rash, no lesions Laboratory Tests Test 01/13/17 05:30 White Blood Count 8.2 K/UL (4.8-10.8) Red Blood Count 5.13 M/UL (4.70-6.10) Hemoglobin 15.6 G/DL (14.2-18.0) Hematocrit 47.2 % (42.0-52.0) Mean Corpuscular Volume 92 FL (80-99) Mean Corpuscular Hemoglobin 30.4 PG (27.0-31.0) Mean Corpuscular Hemoglobin Concent 33.1 G/DL (32.0-36.0) Red Cell Distribution Width 12.0 % (11.6-14.8) Platelet Count 176 K/UL (150-450) Mean Platelet Volume 8.4 FL (6.5-10.1) Neutrophils (%) (Auto) 76.4 % (45.0-75.0) H Lymphocytes (%) (Auto) 14.5 % (20.0-45.0) L Monocytes (%) (Auto) 8.1 % (1.0-10.0) Eosinophils (%) (Auto) 0.3 % (0.0-3.0) Basophils (%) (Auto) 0.8 % (0.0-2.0) Sodium Level 134 mEQ/L (135-145) L Potassium Level 3.9 mEQ/L (3.4-4.9) Chloride Level 93 mEQ/L (98-107) L Carbon Dioxide Level 22 mEQ/L (20-30) Anion Gap 19 (5-15) H Blood Urea Nitrogen 24 mg/dL (7-23) H Creatinine 1.0 mg/dL (0.7-1.2) Estimat Glomerular Filtration Rate mL/min (>60) Glucose Level 72 mg/dL (74-106) L Calcium Level 8.7 mg/dL (8.6-10.2) Total Bilirubin 0.4 mg/dL (0.0-1.2) Aspartate Amino Transf (AST/SGOT) 18 U/L (5-40) Alanine Aminotransferase (ALT/SGPT) 11 U/L (3-41) Alkaline Phosphatase 71 U/L (40-129) Total Protein 6.2 g/dL (6.6-8.7) L Albumin 3.6 g/dL (3.5-5.2) Globulin 2.6 g/dL Albumin/Globulin Ratio 1.3 (1.0-2.7) Current Medications Medications (Trade) Dose Ordered Sig/Sammy Route PRN Reason Start Time Stop Time Status Last Admin Dose Admin Acetaminophen (Tylenol) 650 mg Q4H PRN ORAL Mild Pain/Temp > 100.5 01/11/17 22:00 02/10/17 21:59 01/12/17 05:03 Acetaminophen/ Hydrocodone Bitart ([place] 5/325) 1 tab Q4H PRN ORAL Moderate Pain (Pain Scale 4-6) 01/12/17 10:00 01/19/17 09:59 01/13/17 04:46 Calcium Carbonate (Tums) 1,000 mg Q4H PRN ORAL INDIGESTION 01/13/17 11:15 02/12/17 11:14 01/13/17 11:58 Levofloxacin 100 ml @ 100 mls/hr Q24H IVPB 01/12/17 19:00 01/19/17 18:59 01/12/17 19:04 Lorazepam (Ativan) 1 mg Q6H PRN ORAL For Anxiety 01/12/17 10:30 01/19/17 10:29 Metronidazole (Flagyl) 100 ml @ 100 mls/hr Q8HR IVPB 01/12/17 14:00 01/19/17 13:59 01/13/17 12:41 Morphine Sulfate 2 mg 2 mg Q4H PRN IVP Severe Pain (Pain Scale 7-10) 01/12/17 11:30 01/19/17 11:29 01/13/17 12:41 Ondansetron HCl 4 mg 4 mg Q6H PRN IVP Nausea & Vomiting 01/11/17 21:15 02/10/17 21:14 01/12/17 17:55 Sodium Chloride (0.45% NS 1000ml) 1,000 ml @ 75 mls/hr [id number] IV 01/11/17 22:00 02/10/17 21:59 01/13/17 12:40 Zolpidem Tartrate (Ambien) 5 mg HSPRN PRN ORAL Insomnia 01/12/17 20:45 02/11/17 20:44 01/12/17 21:57 Karri Trujillo M.D. Jan 13, 2017 16:41
--- NOTE | 2017-01-13 17:08 | Consultation ---
DATE OF CONSULTATION: 01/13/2017 PAIN MANAGEMENT CONSULTATION CONSULTING PHYSICIAN: Santi Zamora M.D. ATTENDING PHYSICIAN: ELIF Landry REFERRING PHYSICIAN: Lucho Goldman M.D. REASON FOR CONSULTATION: Abdominal pain and low back pain. HISTORY OF PRESENT ILLNESS: This is a 71-year-old male, who is being seen on the medical/surgical floor of [facility] for initial comprehensive pain management consultation. The patient reports that he has been having abdominal pain and was admitted under the care of Dr. Goldman for diverticulitis. The patient also having pain in his back which he states has been for many years and has worsened over the past three weeks. It is an off and on pain. It is chronic, rating 10/10. It is described as sharp shooting pain at the left lower extremity increased with movement and reduced with medication. At this time, the patient is in bed. We were consulted so that the patient would have adequate pain control while here in the hospital. PAST MEDICAL HISTORY: Anxiety, sciatica, arrhythmia, cataract. PAST SURGICAL HISTORY: Cataract surgery, hemorrhoid surgery, appendectomy, right leg surgery, pacemaker. MEDICATIONS: Tizanidine, gabapentin. ALLERGIES: Codeine, and pantoprazole. SOCIAL HISTORY: Denies history of smoking. Denies any IV drug abuse or alcohol abuse. REVIEW OF SYSTEMS: Denies rash, fever, chills, sweating, dizziness, drowsiness, blurred vision, sore throat, or change in hearing or weight. No nausea, vomiting, or blood in the stool, or urine. He is complaining of back pain and abdominal pain. PHYSICAL EXAMINATION: GENERAL: Alert, awake, oriented x3. VITAL SIGNS: Blood pressure 154/92, heart rate 81, oxygen saturation 98%, respirations 21, and temperature is 98.1 degrees Fahrenheit. HEENT: PERRLA. NECK: Range of motion is full in all directions. No tenderness. No adenopathy. LUNGS: Clear. HEART: Regular. ABDOMEN: Tenderness to palpation. BACK: Range of motion is decreased in flexion and extension with tenderness to paraspinal muscles. No tenderness to trapezius or rhomboid muscles. EXTREMITIES: Upper extremity range of motion is full in all directions. Motor is intact. No cyanosis. No clubbing. No edema. Sensory is intact. Reflexes are not obtainable. Lower extremity range of motion is decreased due to the patient's clinical condition. No cyanosis. No clubbing. No edema. Sensory intact. Reflexes are not obtainable. No adenopathy. ASSESSMENT AND PLAN: This is a 70-year-old male with lumbar radiculopathy, lumbar degenerative disk disease, abdominal pain, and diverticulitis. The patient will be ordered for a CT scan of lumbar spine without contrast to rule out pathology. The patient will be continued on morphine 2 mg IV every four hours as needed for severe pain and [place] 5/325 one tablet every four hours as needed for mild pain. The patient was discussed with Dr. Zamora and Dr. Zamora concurred. We will follow up with the patient. Thank you very much for the courtesy of this consultation. Santi Zamora M.D. ELIF Landry DR: Yoli JOB#: [id number] CC: ELY
[2017-01-13 20:18] VITALS: BP 143/80
[2017-01-13] MEDS ORDERED: Mylanta II UD 30ml ORAL PRN (21:30)
[2017-01-13] MEDS: Zolpidem 5mg tab ORAL PRN (21:31)
[2017-01-13] MEDS: Pantoprazole Inj IVP SCH (22:21)
--- NOTE | 2017-01-13 22:51 | Geriatric Progress Note ---
Assessment/Plan Assessment/Plan Anxiety d/o Discussed with: patient, family Subjective Constitutional: Reports: malaise, weakness Psychiatric: Reports: other - Anxiety Geriatric Geriatric Last 24 Hour Vital Signs Date Time Temp Pulse Resp B/P Pulse Ox O2 Delivery O2 Flow Rate FiO2 01/13/17 21:08 96.6 01/13/17 20:18 96.6 60 19 143/80 96 Room Air 01/13/17 16:08 97.5 61 18 145/83 97 Room Air 01/13/17 12:00 97.7 71 20 131/80 94 Room Air 01/13/17 08:00 98.1 81 21 154/97 95 Nasal Cannula 2.0 01/13/17 05:45 95.9 01/13/17 04:00 95.9 74 21 144/59 94 Room Air 01/13/17 00:00 97.6 72 18 139/78 95 Room Air Intake and Output 01/12/17 01/13/17 19:00 07:00 Intake Total 600 ml 1415 ml Balance 600 ml 1415 ml Intake Oral 540 ml IV Total 600 ml 875 ml # Voids 2 5 Laboratory Tests Test 01/13/17 05:30 White Blood Count 8.2 K/UL (4.8-10.8) Red Blood Count 5.13 M/UL (4.70-6.10) Hemoglobin 15.6 G/DL (14.2-18.0) Hematocrit 47.2 % (42.0-52.0) Mean Corpuscular Volume 92 FL (80-99) Mean Corpuscular Hemoglobin 30.4 PG (27.0-31.0) Mean Corpuscular Hemoglobin Concent 33.1 G/DL (32.0-36.0) Red Cell Distribution Width 12.0 % (11.6-14.8) Platelet Count 176 K/UL (150-450) Mean Platelet Volume 8.4 FL (6.5-10.1) Neutrophils (%) (Auto) 76.4 % (45.0-75.0) H Lymphocytes (%) (Auto) 14.5 % (20.0-45.0) L Monocytes (%) (Auto) 8.1 % (1.0-10.0) Eosinophils (%) (Auto) 0.3 % (0.0-3.0) Basophils (%) (Auto) 0.8 % (0.0-2.0) Sodium Level 134 mEQ/L (135-145) L Potassium Level 3.9 mEQ/L (3.4-4.9) Chloride Level 93 mEQ/L (98-107) L Carbon Dioxide Level 22 mEQ/L (20-30) Anion Gap 19 (5-15) H Blood Urea Nitrogen 24 mg/dL (7-23) H Creatinine 1.0 mg/dL (0.7-1.2) Estimat Glomerular Filtration Rate mL/min (>60) Glucose Level 72 mg/dL (74-106) L Calcium Level 8.7 mg/dL (8.6-10.2) Total Bilirubin 0.4 mg/dL (0.0-1.2) Aspartate Amino Transf (AST/SGOT) 18 U/L (5-40) Alanine Aminotransferase (ALT/SGPT) 11 U/L (3-41) Alkaline Phosphatase 71 U/L (40-129) Total Protein 6.2 g/dL (6.6-8.7) L Albumin 3.6 g/dL (3.5-5.2) Globulin 2.6 g/dL Albumin/Globulin Ratio 1.3 (1.0-2.7) Current Medications Medications (Trade) Dose Ordered Sig/Sammy Route PRN Reason Start Time Stop Time Status Last Admin Dose Admin Acetaminophen (Tylenol) 650 mg Q4H PRN ORAL Mild Pain/Temp > 100.5 01/11/17 22:00 02/10/17 21:59 01/12/17 05:03 Acetaminophen/ Hydrocodone Bitart ([place] 5/325) 1 tab Q4H PRN ORAL Moderate Pain (Pain Scale 4-6) 01/12/17 10:00 01/19/17 09:59 01/13/17 04:46 Al Hydroxide/Mg Hydroxide (Mylanta II) 30 ml Q6H PRN ORAL Abdominal cramps 01/13/17 21:30 02/12/17 21:29 Calcium Carbonate (Tums) 1,000 mg Q4H PRN ORAL INDIGESTION 01/13/17 11:15 02/12/17 11:14 01/13/17 17:26 Levofloxacin 100 ml @ 100 mls/hr Q24H IVPB 01/12/17 19:00 01/19/17 18:59 01/13/17 19:19 Lorazepam (Ativan) 1 mg Q6H PRN ORAL For Anxiety 01/12/17 10:30 01/19/17 10:29 Metronidazole (Flagyl) 100 ml @ 100 mls/hr Q8HR IVPB 01/12/17 14:00 01/19/17 13:59 01/13/17 20:50 Morphine Sulfate 2 mg 2 mg Q4H PRN IVP Severe Pain (Pain Scale 7-10) 01/12/17 11:30 01/19/17 11:29 01/13/17 20:38 Ondansetron HCl 4 mg 4 mg Q6H PRN IVP Nausea & Vomiting 01/11/17 21:15 02/10/17 21:14 01/13/17 20:49 Pantoprazole (Protonix) 40 mg DAILY IVP 01/13/17 22:00 02/12/17 21:59 01/13/17 22:21 Sodium Chloride (0.45% NS 1000ml) 1,000 ml @ 75 mls/hr [id number] IV 01/11/17 22:00 02/10/17 21:59 01/13/17 12:40 Zolpidem Tartrate (Ambien) 5 mg HSPRN PRN ORAL Insomnia 01/12/17 20:45 02/11/17 20:44 01/13/17 21:31 Height (Feet): 6 Weight (Pounds): 199 General Appearance: well appearing, well dressed, well groomed, well nourished , non-toxic, good eye contact, mild distress Psychiatric: judgement/insight normal, memory normal, mood/affect normal, no suicidal/homicidal ideation, no delusions, depressed affect, anxious Psychiatric Behavior: cooperative Language/Speech: intact Orientation: person, place, time, situation Affect: appropriate Conor Cortes M.D. Jan 13, 2017 22:51
--- NOTE | 2017-01-13 23:23 | General Progress Note ---
Assessment/Plan Assessment/Plan Assessment - (L) LQ abd pain - diverticulosis - resolved GIB - Likely diverticulitis Recommendations - abx - advance po - outpatient colonoscopy in 4-8 weeks Subjective Allergies: Coded Allergies: CODEINE (Verified Allergy, Unknown, 01/11/17) Ferreira Meat (Verified Allergy, Unknown, 01/11/17) Uncoded Allergies: MINT (Allergy, Unknown, 01/11/17) SODIUM PENATOL (Allergy, Unknown, 01/11/17) Subjective slept better less pain some indigestion Objective Last 24 Hour Vital Signs Date Time Temp Pulse Resp B/P Pulse Ox O2 Delivery O2 Flow Rate FiO2 01/13/17 21:08 96.6 01/13/17 20:18 96.6 60 19 143/80 96 Room Air 01/13/17 16:08 97.5 61 18 145/83 97 Room Air 01/13/17 12:00 97.7 71 20 131/80 94 Room Air 01/13/17 08:00 98.1 81 21 154/97 95 Nasal Cannula 2.0 01/13/17 05:45 95.9 01/13/17 04:00 95.9 74 21 144/59 94 Room Air 01/13/17 00:00 97.6 72 18 139/78 95 Room Air Intake and Output 01/12/17 01/13/17 19:00 07:00 Intake Total 600 ml 1415 ml Balance 600 ml 1415 ml Intake Oral 540 ml IV Total 600 ml 875 ml # Voids 2 5 Laboratory Tests 01/13/17 05:30: White Blood Count 8.2, Red Blood Count 5.13, Hemoglobin 15.6, Hematocrit 47.2, Mean Corpuscular Volume 92, Mean Corpuscular Hemoglobin 30.4, Mean Corpuscular Hemoglobin Concent 33.1, Red Cell Distribution Width 12.0, Platelet Count 176, Mean Platelet Volume 8.4, Neutrophils (%) (Auto) 76.4H, Lymphocytes (%) (Auto) 14.5L, Monocytes (%) (Auto) 8.1, Eosinophils (%) (Auto) 0.3, Basophils (%) (Auto ) 0.8, Sodium Level 134L, Potassium Level 3.9, Chloride Level 93L, Carbon Dioxide Level 22, Anion Gap 19H, Blood Urea Nitrogen 24H, Creatinine 1.0, Estimat Glomerular Filtration Rate , Glucose Level 72L, Calcium Level 8.7, Total Bilirubin 0.4, Aspartate Amino Transf (AST/SGOT) 18, Alanine Aminotransferase (ALT/SGPT) 11, Alkaline Phosphatase 71, Total Protein 6.2L, Albumin 3.6, Globulin 2.6, Albumin/Globulin Ratio 1.3 Height (Feet): 6 Weight (Pounds): 199 Objective WDWN WM NCAT supple CTA RRR Soft ND mild TTP on (L) side no edema non focal UTE SHAH Jan 13, 2017 23:23
[2017-01-13] MEDS ORDERED: Sorbitol Solution UD 30ml ORAL ONE (23:45)
[2017-01-14] VITALS (7 sets, daily range): BP systolic 117–145; BP diastolic 64–82
--- NOTE | 2017-01-14 02:38 | Consultation ---
DATE OF CONSULTATION: 01/12/2017 HISTORY OF PRESENT ILLNESS: This is a 71-year-old male with a history of multiple medical problems including GERD, hypertension, arthritis, pacemaker placement, who has been admitted to the hospital due to hip pain and abdominal pain. The patient presented with pressured speech and anxiety in the ER and was noted to be anxious and agitated. . The patient was given Ativan for anxiety and agitation. During my evaluation, he was calm circumstantial and have any concerns about his medical condition. He has been diagnosed with an acute diverticulitis. He denied any history of depression, andie, or psychotic symptoms. He does not endorse any of the above symptoms beside anxiety. PAST PSYCHIATRIC HISTORY: Diagnosed with anxiety disorder. He has been given anti anxiety medications. PAST MEDICAL HISTORY: Significant for GERD and status post pacemaker placement, leg surgery, appendectomy, and cataract surgery. ALLERGIES: No known drug allergies. SOCIAL HISTORY: The patient is . Lives at home. He has a son. FAMILY HISTORY: Significant for son with ulcerative colitis. MENTAL STATUS EXAMINATION: Alert and oriented x4. Mood is anxious. Affect is constricted. Congruent mood. Thought process is circumstantial. Thought content, no suicidal or homicidal ideation. No psychotic symptoms. Insight and judgment is fair. Cognition is intact. PLAN: 1. The patient was already started on Ativan. 2. We will continue to follow the patient. 3. Provide the patient with supportive therapy and reality orientation. Conor Cortes M.D. DR: Pio JOB#: [id number] CC:
[2017-01-14] MEDS: metroNIDAZOLE 500mg 100 ML IVPB SCH ×3 (05:10→22:12)
[2017-01-14] MEDS: Pantoprazole Inj IVP SCH (08:51)
--- NOTE | 2017-01-14 09:48 | General Progress Note ---
Assessment/Plan Assessment/Plan (1) Lumbar Radiculopathy (2) Lumbar DDD (3) Lumbar Herniated Disc (4) Lumbar Spinal stenosis (5) Abdominal pain (6) Diverticulitis The patient will be continued on morphine and [place]. We recommend spina surgeon consultation. The patient was discussed with Dr. Zamora and Dr. Zamora concurred. Subjective Date patient seen: Jan 14, 2017 Time patient seen: 07:15 - am Allergies: Coded Allergies: CODEINE (Verified Allergy, Unknown, 01/11/17) Ferreira Meat (Verified Allergy, Unknown, 01/11/17) Uncoded Allergies: MINT (Allergy, Unknown, 01/11/17) SODIUM PENATOL (Allergy, Unknown, 01/11/17) Subjective REVIEW OF SYSTEMS: Denies rash, fever, chills, sweating, dizziness, drowsiness, blurred vision, sore throat, or change in hearing or weight. No nausea, vomiting, or blood in the stool, or urine. He is complaining of back pain and abdominal pain. SUBJECTIVE: Pt reports that his pain is at a 4/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 We recommend spinal surgeon consultation. Objective Last 24 Hour Vital Signs Date Time Temp Pulse Resp B/P Pulse Ox O2 Delivery O2 Flow Rate FiO2 01/14/17 08:07 97.2 69 18 141/75 96 Room Air 01/14/17 04:00 97.9 68 21 145/78 94 Room Air 01/14/17 00:00 97.5 68 21 139/74 93 Room Air 01/13/17 21:08 96.6 01/13/17 20:18 96.6 60 19 143/80 96 Room Air 01/13/17 16:08 97.5 61 18 145/83 97 Room Air 01/13/17 12:00 97.7 71 20 131/80 94 Room Air Intake and Output 01/13/17 01/14/17 19:00 07:00 Intake Total 610 ml 925 ml Balance 610 ml 925 ml Intake Oral 360 ml 300 ml IV Total 250 ml 625 ml # Voids 3 # Bowel Movements 2 Height (Feet): 6 Weight (Pounds): 199 Objective PHYSICAL EXAMINATION: GENERAL: Alert, awake, oriented x3. HEENT: PERRLA. NECK: Range of motion is full in all directions. No tenderness. No adenopathy. LUNGS: Clear. HEART: Regular. ABDOMEN: Tenderness to palpation. BACK: Range of motion is decreased in flexion and extension with tenderness to paraspinal muscles. No tenderness to trapezius or rhomboid muscles. EXTREMITIES: No cyanosis. No clubbing. No edema. NEURO: No changes. CT of Lumbar spine: Impression: Findings: There is very slight anterior offset of L4 on L5 very slight posterior offset of L5 on S1, presumably related to degenerative change. Bony alignment is otherwise normal. Vertebral body heights are preserved. No acute fractures are evident. At T12-L1, L1-L2, no significant disc bulge or protrusion, spinal stenosis, disc or facet degeneration, or neural foraminal stenosis demonstrated. At L2-3, there is herniation of the disc posterior to the posterior longitudinal ligament, with central and to the left of midline, which results in narrowing of the spinal canal and obliteration of the left lateral recess. The herniated disc extends posterior to the L3 vertebral body almost to the level of the L3 inferior endplate. The protruded disc measures approximately 16 mm transverse, 6 mm AP, an 18 mm craniocaudad. The disc may actually impinge somewhat on the left L3-4 neural foramen as well. Spinal stenosis at this level is also exacerbated by ligamentum flavum hypertrophy. There is mild compromise of the bilateral neural foramina. The disc space is preserved. There is minimal bilateral facet degeneration, worse on the right than on the left. At L3-4, there is moderate spinal stenosis, due to a combination of mild circumferential annular bulge, severe facet and ligamentum flavum hypertrophy, and short pedicles. The neural foramina are largely preserved, except that is mentioned earlier there may be slight compromise of the left neural foramen by the intervening L2-3 disc. There is severe bilateral facet degeneration. The disc space is preserved At L4-5, there is circumferential annular bulge as well as central broad-based posterior disc protrusion and osteophyte complex. This, in combination with facet hypertrophy, short pedicles, and ligamentum flavum hypertrophy probably results in at least moderate narrowing of the spinal canal. There is considerable narrowing in the transverse dimension as well. The neural foramina are only minimally compromised by the protruding disc. The disc space is preserved. There is severe bilateral facet degeneration. At L5-S1, there is moderate to severe degenerative disc narrowing. There is mild posterior osteophyte complex, but this does not appear to significantly narrow the spinal canal. The neural foramina are preserved. The included extraspinal soft tissues are unremarkable. Impression: Inferior central and paracentral disc herniation at L2-3, as described, with obliteration of the lateral recess, spinal stenosis, and possibly even encroachment into the L3-4 neural foramen. Multi-level degenerative changes and spinal stenosis at other levels, as detailed above No acute bony trauma ROSALIO NIXON Jan 14, 2017 09:48
[2017-01-14] MEDS: Norco 5mg/325mg tab ORAL PRN ×3 (10:15→21:01)
--- NOTE | 2017-01-14 10:42 | General Progress Note ---
Assessment/Plan Problem List: (1) Dizziness ICD Codes: R42 - Dizziness and giddiness SNOMED: 692180181, 875660168 (2) Fall ICD Codes: W19.XXXA - Unspecified fall, initial encounter SNOMED: 6145608, 675708263 Qualifiers: Qualified Codes: W19.XXXA - Unspecified fall, initial encounter (3) Episode of generalized weakness ICD Codes: R53.1 - Weakness SNOMED: 63787921 (4) Colitis ICD Codes: K52.9 - Noninfective gastroenteritis and colitis, unspecified SNOMED: 926435039 (5) Diverticulitis ICD Codes: K57.92 - Diverticulitis of intestine, part unspecified, without perforation or abscess without bleeding SNOMED: 230933642 Qualifiers: Qualified Codes: K57.33 - Diverticulitis of large intestine without perforation or abscess with bleeding Status: stable, progressing Assessment/Plan afebrile no wheezing vitals stable no acute events weak abdominal pain is improving Subjective ROS Limited/Unobtainable: Yes Constitutional: Reports: no symptoms Allergies: Coded Allergies: CODEINE (Verified Allergy, Unknown, 01/11/17) Ferreira Meat (Verified Allergy, Unknown, 01/11/17) Uncoded Allergies: MINT (Allergy, Unknown, 01/11/17) SODIUM PENATOL (Allergy, Unknown, 01/11/17) Objective Last 24 Hour Vital Signs Date Time Temp Pulse Resp B/P Pulse Ox O2 Delivery O2 Flow Rate FiO2 01/14/17 09:51 97.2 01/14/17 08:07 97.2 69 18 141/75 96 Room Air 01/14/17 04:00 97.9 68 21 145/78 94 Room Air 01/14/17 00:00 97.5 68 21 139/74 93 Room Air 01/13/17 21:08 96.6 01/13/17 20:18 96.6 60 19 143/80 96 Room Air 01/13/17 16:08 97.5 61 18 145/83 97 Room Air 01/13/17 12:00 97.7 71 20 131/80 94 Room Air Intake and Output 01/13/17 01/14/17 19:00 07:00 Intake Total 610 ml 925 ml Balance 610 ml 925 ml Intake Oral 360 ml 300 ml IV Total 250 ml 625 ml # Voids 3 # Bowel Movements 2 Height (Feet): 6 Weight (Pounds): 199 EENT: PERRL/EOMI Neck: supple Cardiovascular: normal rate Respiratory/Chest: lungs clear Abdomen: soft Lucho Goldman MD Jan 14, 2017 10:42
--- NOTE | 2017-01-14 15:17 | General Progress Note ---
Assessment/Plan Assessment/Plan Assessment - (L) LQ abd pain - nearly resolved - diverticulosis - resolved GIB - Likely diverticulitis Recommendations - abx - po as tolerated - d/c planning - outpatient colonoscopy in 4-8 weeks Subjective Allergies: Coded Allergies: CODEINE (Verified Allergy, Unknown, 01/11/17) Ferreira Meat (Verified Allergy, Unknown, 01/11/17) Uncoded Allergies: MINT (Allergy, Unknown, 01/11/17) SODIUM PENATOL (Allergy, Unknown, 01/11/17) Subjective abd symptoms better some diarrhea with laxative c/o H/A Objective Last 24 Hour Vital Signs Date Time Temp Pulse Resp B/P Pulse Ox O2 Delivery O2 Flow Rate FiO2 01/14/17 11:52 97.0 73 18 137/69 95 Room Air 01/14/17 11:14 97.0 01/14/17 09:51 97.2 01/14/17 08:07 97.2 69 18 141/75 96 Room Air 01/14/17 04:00 97.9 68 21 145/78 94 Room Air 01/14/17 00:00 97.5 68 21 139/74 93 Room Air 01/13/17 21:08 96.6 01/13/17 20:18 96.6 60 19 143/80 96 Room Air 01/13/17 16:08 97.5 61 18 145/83 97 Room Air Intake and Output 01/13/17 01/14/17 19:00 07:00 Intake Total 610 ml 925 ml Balance 610 ml 925 ml Intake Oral 360 ml 300 ml IV Total 250 ml 625 ml # Voids 3 # Bowel Movements 2 Height (Feet): 6 Weight (Pounds): 199 Objective WDWN WM NCAT supple CTA RRR Soft ND mild TTP on (L) side no edema non focal UTE SHAH Jan 14, 2017 15:17
--- NOTE | 2017-01-14 15:32 | Infectious Diseases Prog Note ---
Assessment/Plan Problems: (1) Diverticulitis Assessment & Plan: continue levaquin and flagyl , await stool culture and C diff toxine, follow up with GI (2) Colitis Assessment & Plan: on levaquin and flagyl, send stool culture and C diff (3) Dizziness Assessment & Plan: rule out cardiac VS neurological etiology, consult neurology and cardiology Subjective Constitutional: Denies: anorexia, chills, drenching sweats, fatigue, fever, no symptoms, other HEENT: Denies: congestion, coryza, dysphagia, hearing change, no symptoms, other, visual change Respiratory: Denies: dry cough, no symptoms, other, productive cough, shortness of breath Breasts: Denies: discharge, no symptoms, other, swelling, tenderness Cardiovascular: Denies: chest pain, dyspnea on exertion, no symptoms, other, palpitations Gastrointestinal/Abdominal: Denies: bloating, blood in stool, constipation, diarrhea, nausea, no symptoms, other, vomiting Genitourinary: Denies: dysuria, frequency, hematuria, no symptoms, nocturia, other Neurologic: Denies: confusion, headache, no symptoms, numbness, other, weakness Psychiatric: Denies: anxiety, depression, no symptoms, other Skin: Denies: no symptoms, other, rash, ulcer Allergies: Coded Allergies: CODEINE (Verified Allergy, Unknown, 01/11/17) Ferreira Meat (Verified Allergy, Unknown, 01/11/17) Uncoded Allergies: MINT (Allergy, Unknown, 01/11/17) SODIUM PENATOL (Allergy, Unknown, 01/11/17) Objective Vital Signs Last 24 Hour Vital Signs Date Time Temp Pulse Resp B/P Pulse Ox O2 Delivery O2 Flow Rate FiO2 01/14/17 11:52 97.0 73 18 137/69 95 Room Air 01/14/17 11:14 97.0 01/14/17 09:51 97.2 01/14/17 08:07 97.2 69 18 141/75 96 Room Air 01/14/17 04:00 97.9 68 21 145/78 94 Room Air 01/14/17 00:00 97.5 68 21 139/74 93 Room Air 01/13/17 21:08 96.6 01/13/17 20:18 96.6 60 19 143/80 96 Room Air 01/13/17 16:08 97.5 61 18 145/83 97 Room Air Height (Feet): 6 Weight (Pounds): 199 General Appearance: WD/WN, no acute distress HEENT: normocephalic, atraumatic, anicteric, mucous membranes moist Respiratory/Chest: chest wall non-tender, lungs clear, normal breath sounds, no respiratory distress, no accessory muscle use Cardiovascular: normal peripheral pulses, normal rate, regular rhythm, no gallop/murmur Abdomen: normal bowel sounds, soft, non tender, no organomegaly, non distended , no mass, no scars Extremities: no cyanosis, no clubbing Skin: no rash Current Medications Medications (Trade) Dose Ordered Sig/Sammy Route PRN Reason Start Time Stop Time Status Last Admin Dose Admin Acetaminophen (Tylenol) 650 mg Q4H PRN ORAL Mild Pain/Temp > 100.5 01/11/17 22:00 02/10/17 21:59 01/14/17 08:52 Acetaminophen/ Hydrocodone Bitart ([place] 5/325) 1 tab Q4H PRN ORAL Moderate Pain (Pain Scale 4-6) 01/12/17 10:00 01/19/17 09:59 01/14/17 10:15 Al Hydroxide/Mg Hydroxide (Mylanta II) 30 ml Q6H PRN ORAL Abdominal cramps 01/13/17 21:30 02/12/17 21:29 Calcium Carbonate (Tums) 1,000 mg Q4H PRN ORAL INDIGESTION 01/13/17 11:15 02/12/17 11:14 01/13/17 17:26 Levofloxacin 100 ml @ 100 mls/hr Q24H IVPB 01/12/17 19:00 01/19/17 18:59 01/13/17 19:19 Lorazepam (Ativan) 1 mg Q6H PRN ORAL For Anxiety 01/12/17 10:30 01/19/17 10:29 Metronidazole (Flagyl) 100 ml @ 100 mls/hr Q8HR IVPB 01/12/17 14:00 01/19/17 13:59 01/14/17 13:46 Morphine Sulfate 2 mg 2 mg Q4H PRN IVP Severe Pain (Pain Scale 7-10) 01/12/17 11:30 01/19/17 11:29 01/13/17 20:38 Ondansetron HCl 4 mg 4 mg Q6H PRN IVP Nausea & Vomiting 01/11/17 21:15 02/10/17 21:14 01/13/17 20:49 Pantoprazole (Protonix) 40 mg DAILY IVP 01/13/17 22:00 02/12/17 21:59 01/14/17 08:51 Sodium Chloride (0.45% NS 1000ml) 1,000 ml @ 75 mls/hr [id number] IV 01/11/17 22:00 02/10/17 21:59 01/14/17 05:10 Zolpidem Tartrate (Ambien) 5 mg HSPRN PRN ORAL Insomnia 01/12/17 20:45 02/11/17 20:44 01/13/17 21:31 Karri Trujillo M.D. Jan 14, 2017 15:32
--- NOTE | 2017-01-14 17:15 | Consultation ---
Consult Note Consult Note dict# [id number] Assessment/Plan will need surgical decompression L2345 when infection controlled PAYAM WALL Jan 14, 2017 17:15
[2017-01-14] MEDS: Zolpidem 5mg tab ORAL PRN (22:12)
--- NOTE | 2017-01-14 22:28 | Consultation ---
DATE OF CONSULTATION: 01/14/2017 REFERRING PHYSICIAN: Lucho Goldman M.D. CHIEF COMPLAINT: Lower back pain with left lower extremity radiculopathy and bilateral lower extremity cramping. HISTORY OF PRESENT ILLNESS: The patient is a 71-year-old gentleman with left-sided flank pain going down to his discopathy left hip and down his left leg. He has had cramping for several years in both legs. However, the radiating symptoms on the left came on acutely approximately three weeks ago. He was previously given some steroids, antispasmodic and pain medication, however, the pain has persisted. He developed constipation and subsequently was admitted to the hospital for diverticulitis. The patient has been NPO. A CT scan of the lumbar spine was performed demonstrating abnormalities, and thus he was referred to me for spine surgical evaluation. PAST MEDICAL HISTORY: Significant for gastroesophageal reflux and status post pacemaker. FAMILY HISTORY: Ulcerative colitis. PAST SURGICAL HISTORY: Status post leg surgery, status post appendectomy, and cataract surgery. MEDICATIONS: Reviewed the medication reconciliation report in the chart. PHYSICAL EXAMINATION: MUSCULOSKELETAL: Limited to the spine confirms an elderly gentleman well conversant and cooperative. He was examined while lying flat in the hospital bed. Formal range of motion of lumbar spine was not performed. Examination of the lower extremities demonstrated 5/5 motor strength throughout both lower extremities with the exception of the left quadriceps, which is 4/5. There is notable quads atrophy. He has positive straight leg raise on the left side. Sensation is grossly intact. Reflexes are symmetrically diminished. DIAGNOSTIC DATA: CT scan of the lumbar spine was reviewed confirming a large disc extrusion at L2-L3, left side. There is moderately significant acquired spinal stenosis at L2-L3. There is degenerative stenosis at L3-L4 and L4-L5. There is grade 1 degenerative spondylolisthesis at L4-L5. There is advanced discopathy at L5-S1 with vacuum change. The stenosis is prominent at the L2 through L5 levels. DIAGNOSES: 1. Disk herniation, L2-L3, left side with left lower extremity radiculopathy and quads weakness. 2. L2, L3, L4, and L5 spinal stenosis. PLAN: At this point, I have had lengthy and juan luis discussion with the patient. Based on the patient's weakness on the left quadriceps, I would recommend surgical decompression. Due to the patient's current medical comorbidity, surgery will need to be postponed for some time until the infection is fully controlled. Once controlled, I would recommend surgical decompression L2 through L5 with diskectomy at L2-L3, left side. The patient does understand. He will contact me as an outpatient to schedule the procedure. [facility] Loraine Young DR: VENUS JOB#: [id number] CC:
[2017-01-14] MEDS: Lyrica 50mg cap ORAL SCH (22:37)
[2017-01-15 04:00] VITALS: BP 120/64
[2017-01-15] MEDS: metroNIDAZOLE 500mg 100 ML IVPB SCH (05:19)
[2017-01-15 08:00] VITALS: BP 137/60
[2017-01-15] MEDS: Lyrica 50mg cap ORAL SCH (08:27)
[2017-01-15] MEDS: Norco 5mg/325mg tab ORAL PRN (08:32)
[2017-01-15] MEDS: Pantoprazole Inj IVP SCH (09:00)
--- NOTE | 2017-01-15 09:09 | Orthopedic Spine Progress Note ---
Ortho Spine - Progress Note Subjective Symptoms: improved - slightly with lyrica Objective Vital Signs: Last 24 Hour Vital Signs Date Time Temp Pulse Resp B/P Pulse Ox O2 Delivery O2 Flow Rate FiO2 01/15/17 08:00 97.2 71 20 137/60 94 Room Air 01/15/17 04:00 97.7 61 18 120/64 97 Room Air 01/14/17 23:59 97.0 64 20 117/64 95 Room Air 01/14/17 22:00 96.4 01/14/17 20:00 97.7 76 20 123/82 94 Room Air 01/14/17 16:00 96.4 72 20 128/79 97 Room Air 01/14/17 11:52 97.0 73 18 137/69 95 Room Air 01/14/17 09:51 97.2 I&O: Intake and Output 01/14/17 01/15/17 19:00 07:00 Intake Total 945 ml 1085 ml Balance 945 ml 1085 ml Intake Oral 120 ml 360 ml IV Total 825 ml 725 ml # Voids 2 9 # Bowel Movements 1 1 Neuro Status: abnormal - L quads still weak Plan Plan: PT - needs stair training Additional Comments: pt has elected to hold off on surgery until after he returns back from planned trip to [place]. PAYAM WALL Jan 15, 2017 09:08
--- NOTE | 2017-01-15 09:10 | General Progress Note ---
Assessment/Plan Assessment/Plan Assessment - (L) LQ abd pain - nearly resolved - diverticulosis - resolved GIB - Likely diverticulitis Recommendations - abx - po as tolerated - d/c planning - outpatient colonoscopy in 4-8 weeks Subjective ROS Limited/Unobtainable: Yes Allergies: Coded Allergies: CODEINE (Verified Allergy, Unknown, 01/11/17) Ferreira Meat (Verified Allergy, Unknown, 01/11/17) Uncoded Allergies: MINT (Allergy, Unknown, 01/11/17) SODIUM PENATOL (Allergy, Unknown, 01/11/17) Subjective feeling better Objective Last 24 Hour Vital Signs Date Time Temp Pulse Resp B/P Pulse Ox O2 Delivery O2 Flow Rate FiO2 01/15/17 08:00 97.2 71 20 137/60 94 Room Air 01/15/17 04:00 97.7 61 18 120/64 97 Room Air 01/14/17 23:59 97.0 64 20 117/64 95 Room Air 01/14/17 22:00 96.4 01/14/17 20:00 97.7 76 20 123/82 94 Room Air 01/14/17 16:00 96.4 72 20 128/79 97 Room Air 01/14/17 11:52 97.0 73 18 137/69 95 Room Air 01/14/17 09:51 97.2 Intake and Output 01/14/17 01/15/17 19:00 07:00 Intake Total 945 ml 1085 ml Balance 945 ml 1085 ml Intake Oral 120 ml 360 ml IV Total 825 ml 725 ml # Voids 2 9 # Bowel Movements 1 1 Height (Feet): 6 Weight (Pounds): 199 General Appearance: alert EENT: normal ENT inspection Neck: supple Cardiovascular: normal rate Respiratory/Chest: lungs clear Abdomen: normal bowel sounds, non tender, soft Extremities: non-tender LISA BARRY Jan 15, 2017 09:10
[2017-01-15] MEDS ORDERED: LEVAQUIN500 MG ORAL (11:46)
[2017-01-15] MEDS ORDERED: METRONIDAZOLE500 MG ORAL (11:47)
[2017-01-15 11:55] VITALS: BP_SYST 109; BP_SYST 137; BP_DIAS 60; BP_DIAS 68
[2017-01-15] MEDS ORDERED: 1/2 NS 1000ml IV ONE (12:04)
--- NOTE | 2017-01-15 23:38 | Progress Note ---
DATE: 01/15/2017 SUBJECTIVE: The patient is doing much better and no acute distress. Calm and cooperative. There is no suicidal or homicidal ideation. The patient still endorses anxiety, however, the symptoms are improved. MENTAL STATUS EXAMINATION: Alert and oriented x3. Mood is anxious. Affect is constricted, congruent with mood. Thought process is concrete. Thought content, no suicidal or homicidal ideations. ASSESSMENT: Anxiety disorder. PLAN: 1. The patient will be continued with current medication. 2. Provide the patient with supportive therapy and reality orientation. Conor Cortes M.D. DR: DUSTIN JOB#: [id number] CC:
--- NOTE | 2017-01-15 23:38 | Progress Note ---
SUBJECTIVE: The patient is in no acute distress. Doing well. Compliant with medications. He is going to be discharged today. No behavior issues. No anxiety. Questionable agitation. Still has minor anxiety. MENTAL STATUS EXAMINATION: Alert and oriented x4, pleasant and cooperative. Mood is anxious. Affect is poor and congruent with mood. Thought process circumstantial. Thought content, no suicidal, homicidal ideation. ASSESSMENT: Depression. PLAN: 1. The patient will be continued with current medication. 2. Provide the patient with supportive therapy and reality orientation. Conor Cortes M.D. DR: Bryant JOB#: [id number] CC:
--- NOTE | 2017-01-18 08:24 | Discharge Summary ---
Discharge Summary Hospital Course Date of Admission Jan 11, 2017 at 16:38 Date of Discharge Jan 15, 2017 at 12:05 Admitting Diagnosis weakness ARLEY Mustafa is a 71 year old male who was admitted on Jan 11, 2017 at 16:38 for Weakness Hospital Course dc summary #[id number] Discharge Medications Continued Medications: Gabapentin* (Gabapentin*) 300 Mg Capsule 300 MG ORAL, CAP Hydrocodone/Acetaminophen 5-325* (Hydrocodone/Acetaminophen 5-325*) 1 Each Tablet 1 TAB ORAL Q6H PRN for For Pain, TAB 0 Refills Levofloxacin* (Levaquin*) 500 Mg Tablet 500 MG ORAL DAILY for 3 Days, TAB Metronidazole* (Flagyl*) 500 Mg Tablet 500 MG ORAL EVERY 8 HOURS for 3 Days, TAB Tizanidine Hcl (Tizanidine Hcl) 2 Mg Capsule 2 MG PO, CAP Discharge Condition Upon Discharge: stable Discharge Disposition Patient was discharged to Home with Home Health(06) Discharge Diagnoses: Discharge Instructions Discharge Instructions Special Instructions I have been assigned to complete a D/C Summary on this account. I was not involved in the patient management Vin MehtaLois lou NP Jan 18, 2017 08:24
--- NOTE | 2017-01-19 01:49 | Discharge Summary 2 SIG ---
DATE OF ADMISSION: 01/11/2017 DATE OF DISCHARGE: 01/15/2017 REASON FOR ADMISSION : 71b years old male, came to the emergency room complaining of left hip pain. He fell at home. He also complained of dizziness. He had blood when wiping his bottom after bowel movement. He complained of dizziness, worse with change of position and moving of the head, associated with nausea and vomiting as well as left-sided abdominal pain. There was no chest pain, no shortness of breath, no headache, no change or blurry vision, and no urinary complaints. Workup in the emergency room revealed mild leukocytosis. CT of the head was negative for any acute intracranial pathology. CT of the abdomen and pelvis revealed acute diverticulitis. No abscess. Pain management was provided. The patient was started on empiric antibiotics, Levaquin, and Flagyl . The patient was admitted to the hospital for further management. ADMITTING DIAGNOSES: 1. Status post fall. 2. Acute diverticulitis. 3. Episode of generalized weakness. HOSPITAL COURSE: The patient was admitted to Med/Surg floor. GI consult was requested. Hemoglobin and hematocrit were stable. CT of the abdomen and pelvis revealed acute diverticulitis versus possible colitis, per GI. The patient also developed some rectal bleeding, which resolved. Per GI, the diagnosis of diverticulitis precludes doing any colonoscopic examination. On the other side , colitis and diverticular bleeding managed with colonoscopic intervention. Given that the patient had stopped bleeding and feeling better, GI made decision not to plan colonoscopy at this time. He recommended the patient to be given antibiotic for presumptive diagnosis of acute diverticulitis and in one month follow up with colonoscopy as an outpatient to rule out colitis. Should the bleeding persists, then the patient will return and the decision can be changed. Patient was explained in detail the plan of care by GI specialist. Stool for C. difficile, was negative. Diet was advanced to clear liquids. The patient was able to tolerate diet. Antiemetics provided as needed. Diet was advanced to regular, patient was able to tolerate diet. ID was involved in the care of this patient. Mild leukocytosis resolved. Afebrile. The patient was discharged on oral antibiotics for additional three days. The patient also complained of the left hip pain. Initially, orthopedic surgery consult was requested for evaluation. According to the orthopedic surgeon, the patient has probable peritrochanteric bursitis with possible lumbar radiculopathy. The patient had localized pain on the lateral aspect of the left hip, which could be either peritrochanteric bursitis or referred pain from diverticulitis. He recommended medical treatment of diverticulitis and close monitoring. If pain not improved after treatment with antibiotics, patient can benefit from cortisone injection in peritrochanteric area, which could be done on outpatient basis. Ortho surgeon discussed his findings with the patient and recommended to follow up with him in two to three weeks as an outpatient if the pain not resolved. The patient was working with physical and occupational therapists. The patient undergone CT-spine of L-spine due to the hip pain as well, which revealed disk herniation at level L2 and L3 with obliteration of the lateral recess, spinal stenosis, and possibly even encroachment into the L3-L4 neural foraminal. Multilevel degenerative changes at other levels L2-L3 and L4-L5. No acute bony trauma. Neurosurgeon consult was requested. Neurosurgeon seen the patient and after reviewing the CT scan of the lumbar spine, confirmed the large disk extrusion at L2-L3 on the left side as well as moderate significant acquired spinal stenosis at L2-L3 and degenerative stenosis at L3-L4 and L4-L5. According to the neurosurgeon, he had lengthy and juan luis discussion with the patient and based on the patient's weakness of the left quadriceps, he recommended surgical decompression. However given the patient's current medical comorbidity, surgery need to be postponed until the infection controlled and resolved. Once infection resolved, neurosurgeon recommended surgical decompression at L2 through L5 with diskectomy at L2-L3, left side. The patient will follow up with the neurosurgeon as an outpatient to schedule the procedure. The patient was stable for discharge on antibiotics. Abdominal pain resolved, no rectal bleeding, stable hemoglobin and hematocrit. Pain was controlled with current analgesic regimen. Pain specialist followed. Patient was discharged to home with home health services for PT/OT therapy.. DISCHARGE DIAGNOSES: 1. Status post fall. 2. Acute diverticulitis. 3. Possible colitis. 4. Left hip pain. 5. Peritrochanteric bursitis with possible lumbar radiculopathy. 6. Lumbar radiculopathy. 7. Lumbar degenerative disk disease. 8. Gastrointestinal bleeding/rectal bleeding, resolved. 9. Spinal stenosis, L2, L3, L4, and L5. 10. Disk herniation, L2-L3, left side with the left lower extremities radiculopathy and quads weakness. DISCHARGE MEDICATIONS: See medication reconciliation list. DISCHARGE INSTRUCTIONS: The patient was discharged to home with home health. All discharge instructions were discussed fully with the patient. The patient to follow up with the gastrointestinal doctor for outpatient colonoscopy. The patient was instructed to return back to emergency room if bleeding returns, otherwise colonoscopy in one month. The patient to follow up with the neurosurgeon for recommended surgical decompression if he decides to have surgery. The patient to follow up with orthopedic surgeon if he has continued pain in the left hip for cortisone injection Lucho Goldman M.D. I have been assigned to dictate discharge summary on this account and I was not involved in the patient's management. Lois CabralMonroe Community Hospitaldasha N.PTodd DR: Jason JOB#: [id number] CC: ELY
== END 2017-01-15 12:05 | disposition home health service (06) | DRG 392 ==
LOC: EDBD 15:48 → EMR 16:25 → 4W 16:38 → EDBEDREQ 18:22 → 4W 01-12 14:33
DX: K57.92 Diverticulitis of intestine, part unspecified, without perforation or abscess without bleeding (principal); G62.9 Polyneuropathy, unspecified; K92.2 Gastrointestinal hemorrhage, unspecified; Z91.81 History of falling; R53.1 Weakness; M70.62 Trochanteric bursitis, left hip; M51.16 Intervertebral disc disorders with radiculopathy, lumbar region; K52.9 Noninfective gastroenteritis and colitis, unspecified; M48.06 Spinal stenosis, lumbar region; K64.9 Unspecified hemorrhoids; R42 Dizziness and giddiness; K21.9 Gastro-esophageal reflux disease without esophagitis; Z95.0 Presence of cardiac pacemaker; Z88.6 Allergy status to analgesic agent; Z88.8 Allergy status to other drugs, medicaments and biological substances; F41.9 Anxiety disorder, unspecified
CPT/HCPCS: 36415; 70450; 71010; 72131; 74177; 80053; 81003; 82550; 82553; 84484; 85025; 87493; 93005; J2405